=== PATIENT | male | born 1945 | race Two or more races ===

== ENCOUNTER 2017-03-21 12:07 | Emergency (ER) | payer MEDICARE, MEDICAID ==
[~2017-03-21] VITALS: Ht 172.7 cm; Wt 90.7 kg
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
[2017-03-21 13:00] VITALS: BP 172/99
[2017-03-21] MEDS ORDERED: CYCLOBENZAPRINE10 MG ORAL (13:17)
[2017-03-21] MEDS ORDERED: TYLENOL EXTRA500 MG ORAL (13:17)
[2017-03-21 13:20] VITALS: BP_SYST 172; BP_SYST 199; BP_DIAS 104; BP_DIAS 99
--- NOTE | 2017-03-21 13:21 | Diagnostic Imaging Report ---
Indication: Pain 3 views of the left knee were obtained. Findings: There is no acute fracture identified. There is moderate osteoarthritis with joint space narrowing and osteophyte formation. In the posterior aspect of the knee there is a well-corticated ossicle. This is probably extracapsular but this is not for certain. This could be an osseous loose body. Impression: No acute injury identified. Moderate osteoarthritis. Possible posterior osseous loose body. Please correlate clinically
== END 2017-03-21 13:20 | disposition home or self-care (01) ==
LOC: EDBD 12:07 → EMR 13:17
DX: S80.02XA Contusion of left knee, initial encounter (principal); V89.2XXA Person injured in unspecified motor-vehicle accident, traffic, initial encounter; Y93.9 Activity, unspecified; Y99.9 Unspecified external cause status; I10 Essential (primary) hypertension; E78.5 Hyperlipidemia, unspecified; M25.562 Pain in left knee; E11.9 Type 2 diabetes mellitus without complications; Z88.0 Allergy status to penicillin
CPT/HCPCS: 99283